=== PATIENT | male | born 1955 | race Caucasian/White ===

== ENCOUNTER 2016-04-28 16:40 | Outpatient (CLI) | payer BC | END 2016-04-28 16:41 | disposition home or self-care (01) | DX: R97.20 Elevated prostate specific antigen [PSA] (principal); N40.1 Benign prostatic hyperplasia with lower urinary tract symptoms ==

== ENCOUNTER 2016-08-06 06:38 | Outpatient (CLI) | payer BC | END 2016-08-06 06:39 | disposition home or self-care (01) | DX: Z00.00 Encounter for general adult medical examination without abnormal findings (principal); E78.5 Hyperlipidemia, unspecified; N40.0 Benign prostatic hyperplasia without lower urinary tract symptoms; R53.83 Other fatigue; G25.9 Extrapyramidal and movement disorder, unspecified; E63.9 Nutritional deficiency, unspecified; K90.9 Intestinal malabsorption, unspecified ==

== ENCOUNTER 2016-09-17 07:58 | Outpatient (CLI) | payer BC | END 2016-09-17 07:59 | disposition home or self-care (01) | DX: Z00.00 Encounter for general adult medical examination without abnormal findings (principal); E78.5 Hyperlipidemia, unspecified; E63.9 Nutritional deficiency, unspecified; K90.9 Intestinal malabsorption, unspecified ==

== ENCOUNTER 2017-05-10 16:37 | Outpatient (CLI) | payer BC ==
[2017-05-10 18:14] LABS: PSA FREE 3.83 ng/mL (0.16-2.81); PSA TOTAL 26.71 ng/mL (0.000-2.000)
== END 2017-05-10 16:38 | disposition home or self-care (01) ==
LOC: LAB 16:37
PROVIDERS: ATTEND Specialist
DX: R97.20 Elevated prostate specific antigen [PSA] (principal); N40.0 Benign prostatic hyperplasia without lower urinary tract symptoms
CPT/HCPCS: 36415; 84154

== ENCOUNTER 2017-11-04 05:47 | Outpatient (CLI) | payer BC ==
[2017-11-04 06:30] LABS: BASOPHILS # (AUTO) 0.1 10^3/uL (0.0-0.1); BASOPHILS % (AUTO) 1.1 %; EOSINOPHILS # (AUTO) 0.2 10^3/uL (0.0-0.7); EOSINOPHILS % (AUTO) 4.7 %; HGB - HEMOGLOBIN 15.6 g/dL (14.0-18.0); LYMPHOCYTES # (AUTO) 1.7 10^3/uL (1.5-3.5); LYMPHOCYTES % (AUTO) 33.2 %; MEAN CORPUSCULAR HEMOGLOBIN 28.7 pg (27.0-31.0); MEAN CORPUSCULAR HGB CONC 33.9 g/dL (32.0-36.0); MEAN CORPUSCULAR VOLUME 84.5 fL (80.0-94.0); MONOCYTES # (AUTO) 0.4 10^3/uL (0.0-1.0); MONOCYTES % (AUTO) 7.9 %; NEUTROPHILS # (AUTO) 2.7 10^3/uL (1.5-6.6); NEUTROPHILS % (AUTO) 53.1 %; PLT - PLATELET COUNT 182 10^3/uL (130-450); RED BLOOD COUNT 5.45 10^6/uL (4.70-6.10); RED CELL DISTRIBUTION WIDTH 13.9 % (12.0-15.0); WHITE BLOOD COUNT 5.1 x10^3/uL (4.8-10.8)
[2017-11-04 06:52] LABS: ALKALINE PHOSPHATASE 84 IU/L (42-121); BILIRUBIN,TOTAL 1.6 mg/dL (0.2-1.0); BUN - BLOOD UREA NITROGEN 17 mg/dL (6-20); CARBON DIOXIDE - CO2 30 mmol/L (21-32); CHLORIDE 102 mmol/L (101-111); CHOL/HDL RATIO 3.6 (<5.0); CHOLESTEROL 187 mg/dL; CREATININE 0.9 mg/dL (0.6-1.2); GAMMA GLUTAMYL TRANSPEPTIDASE 31 IU/L (8-55); GFR - MDRD 86 (>89); GLUCOSE 96 mg/dL (70-100); HDL CHOLESTEROL 52 mg/dL; LDL CHOLESTEROL,CALCULATED 124 mg/dL; LDL/HDL RATIO 2.4 (<3.6); PHOSPHORUS 3.5 mg/dL (2.5-4.6); SODIUM 138 mmol/L (135-145); URIC ACID 5.6 mg/dL (2.6-7.2); VLDL CHOLESTEROL 11 mg/dL
== END 2017-11-04 05:48 | disposition home or self-care (01) ==
LOC: LAB 05:47
PROVIDERS: ATTEND Registered Nurse
DX: R53.83 Other fatigue (principal); E78.5 Hyperlipidemia, unspecified; E63.9 Nutritional deficiency, unspecified; K90.9 Intestinal malabsorption, unspecified
CPT/HCPCS: 36415; 80048; 80061; 81599; 82040; 82247; 82306; 82977; 83615; 83721; 84075; 84100; 84153; 84155; 84443; 84550; 85025; 85651

== ENCOUNTER 2018-01-31 14:46 | Outpatient (CLI) | payer BC ==
--- NOTE | 2018-02-01 12:30 | MRI Report ---
Reason: PAIN IN RIGHT KNEE Procedure Date: 01/31/2018 Accession Number: [id number] / [id number] Procedure: MRI - Knee RT W/O CPT Code: FULL RESULT: EXAM: RIGHT KNEE MRI WITHOUT CONTRAST EXAM DATE: 01/31/2018 03:28 PM. CLINICAL HISTORY: Right knee pain. COMPARISON: None. TECHNIQUE: Multiplanar, multisequence T1-weighted and fluid-sensitive sequences of the knee without contrast. Other: None. FINDINGS: Bones and articular cartilage: Small marginal osteophytes at the femoral condyles, tibial plateau, and patella. Focal grade 3-4 chondromalacia and subchondral marrow edema at the anteromedial aspect of the medial tibial plateau. Focal articular cartilage fissure or defect at the posterior aspect of the medial femoral condyle. Grade 2-3 chondromalacia at the medial femoral condyle. Subcortical cysts and subchondral marrow edema at the posterior aspect of the medial femoral condyle. Focal subchondral marrow edema at the posterior lateral aspect of the lateral tibial plateau. Focal grade 2 chondromalacia at the inferior aspect of the femoral trochlear groove. Partial-thickness articular cartilage fissures at the median ridge of the patella. Small partial-thickness articular cartilage fissures at the medial and lateral aspects of the patella. Minimal subchondral marrow edema at the medial patellar facet. No patellar subluxation. There is a 7 x 6 x 8 mm bone fragment adjacent to the lateral tibial spine, and a 7 x 6 x 5 mm ossified fragment adjacent to the anterior aspect of the medial tibial spine. Medial Meniscus: Complex obliquely-oriented tear involving the posterior horn and body. The posterior horn and body are partially absent. Lateral Meniscus: The lateral meniscus is intact. Cruciate Ligaments: The anterior and posterior cruciate ligaments are intact. Collateral Ligaments: The medial collateral and lateral collateral ligamentous structures are intact. Tendons: The quadriceps, patellar, semimembranosus, and popliteus tendons are unremarkable. Musculature: No edema or fatty atrophy. Other: Small joint effusion. Small popliteal cyst. There is 5 x 5 x 4 mm focus of isointense tissue at the anterior aspect of the femoral-tibial joint. The medial and lateral retinacula are intact. There is edema within the infrapatellar fat pad. IMPRESSION: 1. 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 2. Complex, obliquely-oriented tear and partial absence of the posterior horn and body of the medial meniscus. 3. Small joint effusion and popliteal cyst. 4. Small bone fragments adjacent to the medial and lateral tibial spines which may represent old ununited fractures or accessory ossicles. 5. A 5 x 5 x 4 mm focus of tissue at the anterior aspect of the femoral-tibial joint which may represent a loose body or focal synovial thickening. 6. Edema within the infrapatellar fat pad which may be inflammatory. [facility] MUSCULOSKELETAL RADIOLOGY SECTION
== END 2018-01-31 14:47 | disposition home or self-care (01) ==
LOC: DI 14:46
PROVIDERS: ATTEND Orthopaedic Surgery Sports Medicine
DX: M17.11 Unilateral primary osteoarthritis, right knee (principal); S83.231A Complex tear of medial meniscus, current injury, right knee, initial encounter; M71.21 Synovial cyst of popliteal space [Baker], right knee; M25.461 Effusion, right knee; R60.0 Localized edema

== ENCOUNTER 2018-02-15 09:58 | Outpatient (CLI) | payer BC | END 2018-02-15 09:59 | disposition home or self-care (01) | LOC: LAB 09:58 | PROVIDERS: ATTEND Specialist | DX: N40.1 Benign prostatic hyperplasia with lower urinary tract symptoms (principal) | CPT/HCPCS: 36415; 84153 ==

== ENCOUNTER 2018-03-30 15:13 | Outpatient (CLI) | payer BC ==
[2018-03-30 15:33] LABS: CREATININE 0.9 mg/dL (0.6-1.2)
== END 2018-03-30 15:14 | disposition home or self-care (01) ==
LOC: LAB 15:13
PROVIDERS: ATTEND Specialist
DX: N40.1 Benign prostatic hyperplasia with lower urinary tract symptoms (principal); R97.20 Elevated prostate specific antigen [PSA]
CPT/HCPCS: 36415; 82565

== ENCOUNTER 2019-01-07 16:12 | Outpatient (CLI) | payer BC ==
[2019-01-07 17:09] LABS: BASOPHILS # (AUTO) 0.1 10^3/uL (0.0-0.1); BASOPHILS % (AUTO) 1.3 %; EOSINOPHILS # (AUTO) 0.2 10^3/uL (0.0-0.7); EOSINOPHILS % (AUTO) 3.4 %; HGB - HEMOGLOBIN 15.5 g/dL (14.0-18.0); LYMPHOCYTES # (AUTO) 2.1 10^3/uL (1.5-3.5); LYMPHOCYTES % (AUTO) 33.4 %; MEAN CORPUSCULAR HEMOGLOBIN 28.7 pg (27.0-31.0); MEAN CORPUSCULAR HGB CONC 33.6 g/dL (32.0-36.0); MEAN CORPUSCULAR VOLUME 85.2 fL (80.0-94.0); MEAN PLATELET VOLUME 9.5 fL (7.4-11.4); MONOCYTES # (AUTO) 0.5 10^3/uL (0.0-1.0); MONOCYTES % (AUTO) 8.4 %; NEUTROPHILS # (AUTO) 3.3 10^3/uL (1.5-6.6); NEUTROPHILS % (AUTO) 53.2 %; PLT - PLATELET COUNT 166 10^3/uL (130-450); RED BLOOD COUNT 5.41 10^6/uL (4.70-6.10); RED CELL DISTRIBUTION WIDTH 13.9 % (12.0-15.0); WHITE BLOOD COUNT 6.2 x10^3/uL (4.8-10.8)
[2019-01-07 17:32] LABS: ALBUMIN 4.4 g/dL (3.2-5.5); ALBUMIN/GLOBULIN RATIO 1.5 (1.0-2.2); ALKALINE PHOSPHATASE 77 IU/L (42-121); ALT ALANINE AMINOTRANSFERASE 31 IU/L (10-60); AST ASPARTATE AMINOTRANSFERASE 28 IU/L (10-42); BILIRUBIN,TOTAL 1.8 mg/dL (0.2-1.0); BUN - BLOOD UREA NITROGEN 17 mg/dL (6-20); CALCIUM 9.7 mg/dL (8.5-10.3); CARBON DIOXIDE - CO2 31 mmol/L (21-32); CHLORIDE 104 mmol/L (101-111); CHOL/HDL RATIO 4.2 (<5.0); CHOLESTEROL 254 mg/dL; CREATININE 0.8 mg/dL (0.6-1.2); GAMMA GLUTAMYL TRANSPEPTIDASE 29 IU/L (8-55); GFR - MDRD 98 (>89); GLUCOSE 90 mg/dL (70-100); HDL CHOLESTEROL 61 mg/dL; LDL CHOLESTEROL,CALCULATED 175 mg/dL; LDL/HDL RATIO 2.9 (<3.6); PHOSPHORUS 3.7 mg/dL (2.5-4.6); SODIUM 142 mmol/L (135-145); TOTAL PROTEIN 7.3 g/dL (6.7-8.2); URIC ACID 5.5 mg/dL (2.6-7.2); VLDL CHOLESTEROL 18 mg/dL
== END 2019-01-07 16:13 | disposition home or self-care (01) ==
LOC: LAB 16:12
PROVIDERS: ATTEND Registered Nurse
DX: R53.83 Other fatigue (principal); E78.5 Hyperlipidemia, unspecified; K90.9 Intestinal malabsorption, unspecified
CPT/HCPCS: 36415; 80053; 80061; 82977; 83615; 83721; 84100; 84443; 84550; 85025

== ENCOUNTER 2021-01-18 08:24 | Outpatient (CLI) | payer BC ==
[2021-01-18 08:48] LABS: ALBUMIN 4.4 g/dL (3.2-5.5); ALBUMIN/GLOBULIN RATIO 1.5 (1.0-2.2); BILIRUBIN,TOTAL 1.4 mg/dL (0.2-1.0); CALCIUM 9.2 mg/dL (8.5-10.3); CREATININE 0.9 mg/dL (0.6-1.2); POTASSIUM 4.3 mmol/L (3.5-5.0); TOTAL PROTEIN 7.3 g/dL (6.7-8.2)
[2021-01-18 09:26] LABS: PSA FREE 2.24 ng/mL (0.16-2.81)
== END 2021-01-18 08:25 | disposition home or self-care (01) ==
LOC: LAB 08:24
PROVIDERS: ATTEND Registered Nurse
DX: N40.0 Benign prostatic hyperplasia without lower urinary tract symptoms (principal)
CPT/HCPCS: 36415; 80053; 84153; 84154

== ENCOUNTER 2021-08-03 21:21 | Emergency (ER) | payer BC ==
[2021-08-03 21:54] LABS: BASOPHILS # (AUTO) 0.1 10^3/uL (0.0-0.1); BASOPHILS % (AUTO) 0.7 %; EOSINOPHILS # (AUTO) 0.2 10^3/uL (0.0-0.7); EOSINOPHILS % (AUTO) 2.4 %; HCT - HEMATOCRIT 44.4 % (42.0-52.0); HGB - HEMOGLOBIN 14.9 g/dL (14.0-18.0); LYMPHOCYTES # (AUTO) 2.5 10^3/uL (1.5-3.5); LYMPHOCYTES % (AUTO) 36.1 %; MEAN CORPUSCULAR HEMOGLOBIN 28.9 pg (27.0-31.0); MEAN CORPUSCULAR HGB CONC 33.6 g/dL (32.0-36.0); MEAN PLATELET VOLUME 9.9 fL (7.4-11.4); MONOCYTES # (AUTO) 0.6 10^3/uL (0.0-1.0); MONOCYTES % (AUTO) 8.9 %; NEUTROPHILS # (AUTO) 3.6 10^3/uL (1.5-6.6); NEUTROPHILS % (AUTO) 51.8 %; PLT - PLATELET COUNT 202 10^3/uL (130-450); RED BLOOD COUNT 5.16 10^6/uL (4.70-6.10); RED CELL DISTRIBUTION WIDTH 13.5 % (12.0-15.0)
[2021-08-03 22:17] LABS: ALBUMIN 4.5 g/dL (3.2-5.5); ALBUMIN/GLOBULIN RATIO 1.7 (1.0-2.2); BILIRUBIN,TOTAL 0.9 mg/dL (0.2-1.0); CALCIUM 9.2 mg/dL (8.5-10.3); CREATININE 1.1 mg/dL (0.6-1.2); POTASSIUM 3.8 mmol/L (3.5-5.0); TOTAL PROTEIN 7.1 g/dL (6.7-8.2)
[2021-08-03] MEDS ORDERED: ONDANSETRON 4 MG/2 ML VIAL IVP STA (22:29)
[2021-08-03] MEDS ORDERED: MORPHINE 2 MG/ML CARPUJECT IVP STA (22:29)
[2021-08-03] MEDS ORDERED: SODIUM CHLORIDE 0.9% 1,000 ML IV STA (22:29)
[2021-08-03 22:44] LABS: BILIRUBIN,URINE NEGATIVE (NEGATIVE); CLARITY,URINE HAZY (CLEAR); GLUCOSE, URINE (UA) NEGATIVE (NEGATIVE); KETONES,URINE (UA) NEGATIVE (NEGATIVE); LEUKOCYTE ESTERASE, URINE NEGATIVE (NEGATIVE); NITRITE,URINE NEGATIVE (NEGATIVE); OCCULT BLOOD,URINE LARGE (NEGATIVE); PH,URINE 5.5 PH (5.0-7.5); PROTEIN,URINE TRACE mg/dL (NEGATIVE); UROBILINOGEN,URINE 0.2 (NORMAL) E.U./dL (NORMAL)
[2021-08-03 22:54] LABS: BACTERIA,URINE Rare /HPF (None Seen); RBC,URINE TNTC /HPF (0-5); SQUAMOUS EPITHELIAL CELL,UR NONE SEEN (<= Few); WBC,URINE 0-3 /HPF (0-3)
[2021-08-03] MEDS ORDERED: IOVERSOL 320 100 ML VIAL IVP ONE ×2 (23:07→23:44)
--- NOTE | 2021-08-04 00:04 | CT Report ---
PROCEDURE: Abdomen/Pelvis W INDICATIONS: R sided abd pain CONTRAST: IV CONTRAST: Optiray 320 ml: 100 PO CONTRAST: *NO PO CONTRAST TECHNIQUE: After the administration of intravenous contrast, 5 mm thick sections acquired from the diaphragms to the symphysis. 5 mm thick coronal and sagittal reformats were acquired. For radiation dose reducti on, the following was used: automated exposure control, adjustment of mA and/or kV according to thierno ent size. COMPARISON: None. FINDINGS: Image quality: Excellent. ABDOMEN: Lung bases: Basilar atelectasis. No pleural effusion. Heart size is normal. Solid organs: Liver and spleen are normal in size and enhancement. Gallbladder is unremarkable. Bi liary system is non dilated. Pancreas enhances normally. No adrenal nodules. Minimal right hydronephrosis. There is an obstructing calculus in the proximal right ureter measuring 0.3 cm, (3/44). Kidneys enhancement symmetrically. Small simple cyst at the superior pole the right kidney. Punctate nonobstructing kidney stones bilaterally. Peritoneum and bowel: Bowel loops demonstrate normal wall thickness and caliber. No free fluid or a ir. Nodes and vessels: No retroperitoneal or mesenteric adenopathy by size criteria. No abdominal aortic aneurysm. The IVC is prominent. Miscellaneous: Tiny umbilical hernia. PELVIS: Genitourinary: Small stone in the left bladder measuring 0.4 cm, (3/69). There is trace calcification layering at the left bladder. Marked prostatomegaly. Miscellaneous: No inguinal hernias or adenopathy. Bones: No suspicious bony lesions. Altered level DDD. No vertebral body compression fractures. IMPRESSION: 1. Obstructing calculus in the proximal right ureter measuring 0.3 cm. There is minimal right hydrone phrosis. 2. Small stones in the bladder. 3. Additional punctate nonobstructing kidney stones bilaterally. 4. Marked prostatomegaly. Reviewed by: Armen Cruz MD on 08/04/2021 12:04 AM PDT Approved by: Armen Cruz MD on 08/04/2021 12:04 AM PDT Station ID: [id number]
[2021-08-04] MEDS ORDERED: ONDANSETRON ODT 4 MG Prepack 2 TL PRN (00:34)
[2021-08-04] MEDS ORDERED: oxyCODONE/ACET 5/325 Prepack 4 PO STA (00:34)
--- NOTE | 2021-08-04 00:38 | ED Physician Documentation ---
PD HPI ABD PAIN - Stated complaint Stated Complaint: LRQ PX/VOMIT - Chief complaint Chief Complaint: Abd Pain - History obtained from History obtained from: Patient - Additional information Additional information: Patient is a 65-year-old male with a history of BPH presenting for evaluation of right-sided abdominal pain that started suddenly at 8 PM. He reports pain in the right side of his abdomen that feels sharp and throbbing. Nothing makes it better or worse. He has associated nausea and multiple episodes of emesis consisting of his dinner. He deniesBloody or bilious emesis. He did have a similar episode of pain this weekend which resolved on its own. He denies fever, chest pain, difficulty breathing, dysuria, hematuria.He denies previous abdominal surgeries. Review of Systems Constitutional: denies: Fever Nose: denies: Congestion Cardiac: denies: Chest pain / pressure, Palpitations Respiratory: denies: Dyspnea, Cough GI: reports: Abdominal Pain, Nausea, Vomiting : denies: Dysuria, Hematuria Skin: denies: Rash Musculoskeletal: denies: Back pain Neurologic: denies: Headache PD PAST MEDICAL HISTORY - Past Medical History Past Medical History: Yes - Present Medications Home Medications: Ambulatory Orders Medication Instructions Recorded Confirmed Ondansetron Odt [Zofran] 4 mg TL Q6H PRN #10 tablet 08/04/21 Oxycodone HCl/Acetaminophen 1 each PO Q6H PRN #14 tablet 08/04/21 [Percocet 5-325 mg Tablet] - Allergies Allergies/Adverse Reactions: Allergies Allergy/AdvReac Type Severity Reaction Status Date / Time No Known Drug Allergies Allergy Verified 08/03/21 21:30 - Social History Does the pt smoke?: No Smoking Status: Never smoker PD ED PE NORMAL - General General: Alert and oriented X 3, No acute distress, Well developed/nourished - HEENT HEENT: Atraumatic, Moist mucous membranes - Neck Neck: Supple, no meningeal sign - Cardiac Cardiac: RRR, No murmur, Strong equal pulses - Respiratory Respiratory: No respiratory distress, Clear bilaterally - Abdomen Abdomen: Normal bowel sounds, Soft, Non tender (No reproducible tenderness, no tenderness on deep palpation of right upper quadrant or right lower quadrant), Non distended - Back Back: No CVA TTP - Derm Derm: Normal color, No rash - Extremities Extremities: No edema - Neuro Neuro: Alert and oriented X 3, No motor deficit, Normal speech - Psych Psych: Normal mood, Normal affect Results - Vitals Vitals: Vital Signs - 24 hr 08/03/21 08/03/21 08/03/21 21:26 21:30 23:30 Temperature 36.4 C L Heart Rate 60 62 65 Respiratory 17 17 16 Rate Blood Pressure 116/91 H 118/88 H 115/81 H O2 Saturation 100 99 100 08/04/21 00:52 Temperature 36.5 C Heart Rate 79 Respiratory 16 Rate Blood Pressure 118/73 O2 Saturation 97 Oxygen O2 Source Room air - Labs Labs: Laboratory Tests 08/03/21 08/03/21 08/03/21 21:40 21:40 22:30 WBC 7.0 RBC 5.16 Hgb 14.9 Hct 44.4 MCV 86.0 MCH 28.9 MCHC 33.6 RDW 13.5 Plt Count 202 MPV 9.9 Neut # (Auto) 3.6 Lymph # (Auto) 2.5 Morehouse # (Auto) 0.6 Eos # (Auto) 0.2 Baso # (Auto) 0.1 Absolute Nucleated RBC 0.00 Nucleated RBC % 0.0 Sodium 140 Potassium 3.8 Chloride 101 Carbon Dioxide 29 Anion Gap 10.0 BUN 24 H Creatinine 1.1 Estimated GFR (MDRD) 67 L Glucose 103 H Calcium 9.2 Total Bilirubin 0.9 AST 30 ALT 33 Alkaline Phosphatase 91 Total Protein 7.1 Albumin 4.5 Globulin 2.6 Albumin/Globulin Ratio 1.7 Lipase 54 H Urine Color DARK YELLOW Urine Clarity HAZY Urine pH 5.5 Ur Specific Sophia >=1.030 H Urine Protein TRACE Urine Glucose (UA) NEGATIVE Urine Ketones NEGATIVE Urine Occult Blood LARGE H Urine Nitrite NEGATIVE Urine Bilirubin NEGATIVE Urine Urobilinogen 0.2 (NORMAL) Ur Leukocyte Esterase NEGATIVE Urine RBC TNTC H Urine WBC 0-3 Ur Squamous Epith Cells NONE SEEN Urine Crystals 6-10 Uric Acid Urine Bacteria Rare Ur Microscopic Review INDICATED Urine Culture Comments NOT INDICATED PD MEDICAL DECISION MAKING - ED course Complexity details: reviewed results, re-evaluated patient, d/w patient, d/w family ED course: Patient with right-sided abdominal pain. Vital signs are stable and labs are reassuring. CT scan demonstrates a right-sided ureter stone measuring 3 mm. Patient pain and is controlled and does not appear to be septic or have an infection. Patient is already on Flomax and will continue this medication. He has a urologist through the [facility] and was encouraged to have close follow-up. He was given prescriptions to aid in passage of the stone and advised on return precautions. Departure - Departure Disposition: 01 Home, Self Care Clinical Impression: Right ureteral stone Condition: Stable Instructions: ED Stone Renal W Colic Prescriptions: Oxycodone HCl/Acetaminophen [Percocet 5-325 mg Tablet] 1 each PO Q6H PRN #14 tablet PRN Reason: pain Ondansetron Odt [Zofran] 4 mg TL Q6H PRN #10 tablet PRN Reason: Nausea / Vomiting Comments: Anival you were evaluated for pain to the right side of your abdomen. Your work- up today revealed a kidney stone in the right ureter measuring 3 mm.Fortunately you do not have a fever and your labs are overall reassuring. We recommend using pain medication and nausea medication to help you with your symptoms as well as staying hydrated. You are already taking Flomax/tamsulosin. Please continue taking this medication daily and have follow-up with your urologist through the [facility]. If you have any worsening symptoms such as fever, increased pain, vomiting, weakness please return to the emergency department. Your prescriptions were sent to the [facility] pharmacy in [place]. IMPRESSION: 1. Obstructing calculus in the proximal right ureter measuring 0.3 cm. There is minimal right hydronephrosis. Discharge Date/Time: 08/04/21 00:54
[2021-08-04 00:52] VITALS: BP 118/73
== END 2021-08-04 00:54 | disposition home or self-care (01) ==
LOC: ED 21:21
DX: N13.2 Hydronephrosis with renal and ureteral calculous obstruction (principal)
CPT/HCPCS: 36415; 74177; 80053; 81001; 83690; 85025; 96374; 99284; Q9967; 81003; 87086

== ENCOUNTER 2022-09-27 14:00 | Outpatient (CLI) | payer MEDICARE, BC ==
--- NOTE | 2022-09-27 16:03 | XRAY Report ---
PROCEDURE: Ankle 3 View RT INDICATIONS: RIGHT ANKLE JOINT PAIN, SWELLING POST FALL TECHNIQUE: 3 views of the ankle were acquired. COMPARISON: None. FINDINGS: Bones: Moderately displaced fracture of the posterior process of the calcaneus. Ankle mortise is nor jael aligned. No suspicious bony lesions. Soft tissues: No tibiotalar joint effusion. Achilles tendon appears normal. IMPRESSION: Calcaneal fracture. Reviewed by: Alfreda Sin MD on 09/27/2022 4:02 PM PDT Approved by: Alfreda Sin MD on 09/27/2022 4:02 PM PDT Station ID: [id number]
== END 2022-09-27 14:15 | disposition home or self-care (01) ==
LOC: DI.N 14:00
PROVIDERS: ATTEND Physician Assistant
DX: S92.001A Unspecified fracture of right calcaneus, initial encounter for closed fracture (principal)

== ENCOUNTER 2023-07-17 07:45 | Outpatient (CLI) | payer MEDICARE, BC | END 2023-07-17 08:00 | disposition home or self-care (01) | LOC: LAB.N 07:45 | PROVIDERS: ATTEND Physician Assistant Medical | DX: R10.9 Unspecified abdominal pain (principal) | CPT/HCPCS: 87086 ==

== ENCOUNTER 2023-07-18 08:51 | Outpatient (CLI) | payer MEDICARE, BC ==
--- NOTE | 2023-07-18 10:07 | CT Report ---
PROCEDURE: Abdomen/Pelvis WO INDICATIONS: FLANK PAIN TECHNIQUE: A CT scan of the abdomen and pelvis was performed without the use of intravenous contrast. Images we re recorded and evaluated at appropriate window settings. Reformats: coronal and sagittal. For radiat ion dose reduction, the following was used: automated exposure control, adjustment of mA and/or kV ac cording to patient size. COMPARISON: CT abdomen and pelvis with contrast on August 04, 2021. FINDINGS: Image quality: Diagnostic. Evaluation of the visceral organs is limited due to the lack of intravenou s contrast. Lower chest: Unremarkable. Liver: No contour-deforming mass. Gallbladder and biliary tree: No radiopaque stones or wall thickening. No biliary dilation. Spleen: No splenomegaly. Pancreas: No pancreatic ductal dilation. Adrenals: No adrenal nodule. Kidneys and ureters: No hydronephrosis. Left lower pole nonobstructive nephrolith measuring 2 mm. Rig ht upper pole exophytic simple cyst. No renal cystic lesion which requires follow up. No solid mass. Stomach, bowel and peritoneum: Small large bowel is normal in caliber, without obstruction. Above-ave rage colonic stool burden. Lymph nodes: No central or retroperitoneal adenopathy. Vessels: No infrarenal aortic aneurysm. Normal calculation of the infrarenal abdominal aorta and tyrone c vessels. PELVIS Reproductive organs: Marked prostatomegaly, as before. Bladder: Significant ventral bladder wall thickening. Compared to CT dated August 03, 2021, increased size and number of multiple stones within the bladder, the largest of which on the left side near the ureterovesical junction measures 1.3 x 0.7 cm (2/126). Additional large stones in the right bladder are present measuring 1.2 x 0.9 cm and 1.3 x 0.8 cm are present (2/121, 118) one of which is at the r ight ureterovesical junction. Pelvic lymph nodes: No pelvic adenopathy by size criteria. Bones: No aggressive osseous abnormality. No acute fracture. Moderate multilevel degenerative changes of the spine. Other: No significant ventral or inguinal hernia. Tiny fat-containing umbilical hernia. IMPRESSION: Evaluation of the visceral organs is limited due to the lack of intravenous contrast. 1.No hydronephrosis or obstructing renal stone. 2.Left sided nonobstructive nephrolith measuring [address] dated August 03, 2021, increased size and number of multiple stones within the bladde r measuring up to 1.3 x 0.7 cm on the left and 1.3 x 0.8 cm on the right. 4.Marked prostatomegaly with circumferential bladder wall thickening suggestive of chronic bladder ou tlet obstruction. 5.Above-average colonic stool burden which may correlate with constipation. Reviewed by: Michael Feliz MD on 07/18/2023 10:05 AM PDT Approved by: Michael Feliz MD on 07/18/2023 10:05 AM PDT Station ID: [id number]
== END 2023-07-18 08:52 | disposition home or self-care (01) ==
LOC: DI 08:51
PROVIDERS: ATTEND Physician Assistant Medical
DX: N20.0 Calculus of kidney (principal); N21.0 Calculus in bladder; N40.0 Benign prostatic hyperplasia without lower urinary tract symptoms

== ENCOUNTER 2024-01-07 09:46 | Emergency (ER) | payer MEDICARE, BC ==
[2024-01-07 10:02] VITALS: O2SAT 97
--- NOTE | 2024-01-07 10:09 | ED Physician Documentation ---
PD HPI MALE - Stated complaint Stated Complaint: MALE , SEVERE PX, CANNOT URINATE - Chief complaint Chief Complaint: Abd Pain - History obtained from History obtained from: Patient - Additional information Additional information: 68-year-old gentleman who used to be on tamsulosin and on Monday, 3 days ago had a kidney stone lithotripsy at the [facility]. He had an in dwelling catheter postoperatively and took it out this morning at home and has not been able to pee since. He has had blood-tinged urine. Pain is severe and cannot pee. PD PAST MEDICAL HISTORY - Past Medical History Past Medical History: No - Past Surgical History Past Surgical History: Yes - Present Medications Home Medications: Ambulatory Orders Medication Instructions Recorded Confirmed Tamsulosin [Flomax] 0.4 mg PO DAILY 01/07/24 01/07/24 - Allergies Allergies/Adverse Reactions: Allergies Allergy/AdvReac Type Severity Reaction Status Date / Time No Known Drug Allergies Allergy Verified 01/07/24 09:55 - Social History Does the pt smoke?: No Smoking Status: Never smoker Does the pt drink ETOH?: No Does the pt have substance abuse?: No - Immunizations Immunizations are current?: Yes - POLST Patient has POLST: No PD ED PE NORMAL - Vitals Vital signs reviewed: Yes - General General: Alert and oriented X 3 - Abdomen Abdomen: Other (Suprapubic fullness and tenderness and appears uncomfortable) - Neuro Neuro: Alert and oriented X 3 Results - Vitals Vitals: Vital Signs - 24 hr 01/07/24 01/07/24 09:55 10:30 Temperature 36.6 C Heart Rate 83 69 Respiratory 18 16 Rate Blood Pressure 131/74 H 110/75 O2 Saturation 97 97 Oxygen O2 Source Room air PD Medical Decision Making - ED course ED course: He presents with acute urinary retention after a urologic procedure having removed the catheter himself. He used to be on tamsulosin and took a dose this morning at 8 AM and has some at home but has not been taking it routinely in some time as his prostate was seeming better. He had a bladder scan of over 600 mL and the nurses placing a catheter. 68-year-old gentleman with postoperative urinary retention in the setting of a known large prostate. He already took his tamsulosin this morning and does not need a refill. A catheter was placed and 700 mL out and he felt much better. It was mildly bloody but no clots. Departure - Departure Disposition: 01 Home, Self Care Clinical Impression: Urinary retention Condition: Good Record reviewed to determine appropriate education?: Yes Instructions: ED Retention Urinary Male, ED Catheter Care Lee Comments: Start taking your tamsulosin again and I would continue with the catheter, calling your urologist tomorrow for a follow-up appointment within the week. Return for new or worsening symptoms. Drink plenty of fluids. Forms: PCP List
[2024-01-07 10:33] VITALS: BP 110/75
== END 2024-01-07 10:55 | disposition home or self-care (01) ==
LOC: ED 09:46
DX: R33.9 Retention of urine, unspecified (principal)
CPT/HCPCS: 51702; 51798; 99283